=== PATIENT | male | born 1955 | race Hispanic/Latino ===

== ENCOUNTER → 2018-12-10 | Outpatient (CLI) | payer OTHER, SELFPAY ==
[~2018-12-10] MED LIST: OMEPRAZOLE20 M1 PO
--- NOTE | 2018-12-10 10:40 | Diagnostic Imaging Report ---
Abdominal ultrasound. History: Epigastric pain. Comparison: None available. Discussion: Transverse and longitudinal images of the abdomen were obtained demonstrating a liver of normal size but mildly increased echogenicity measuring 10.5 cm in length. There is no focal hepatic abnormality. The portal vein is patent with hepatopetal flow and is within normal limits measuring 7 mm in diameter. The biliary tree is within normal limits with the common bile duct measuring 1 mm in diameter. The gallbladder is contains minimal echogenic material layering posteriorly without evidence of shadowing stones, wall thickening, or pericholecystic fluid. The sonographic Ibarra's sign was negative. The kidneys are normal in size and echogenicity bilaterally without evidence of hydronephrosis, stones, or mass. The right kidney measures 10.5 cm and the left kidney measures 11.1 cm in length. Small parapelvic cysts are noted on the left. The spleen is normal in size and appearance measuring 9.2 cm in length. The pancreatic head and body are visualized and are normal in appearance. The abdominal aorta and IVC are within normal limits. There is no evidence of free fluid. IMPRESSION: 1. Mild fatty infiltration of the liver without focal hepatic abnormality. 2. Minimal gallbladder sludge. No evidence of cholelithiasis. 3. Left parapelvic renal cysts. Otherwise unremarkable abdominal ultrasound. Signed by: Ross Otoole on 12/10/2018 10:37 AM
== END ==
LOC: US 08:10
PROVIDERS: ATTEND Internal Medicine Gastroenterology
DX: R10.13 Epigastric pain (principal); E66.3 Overweight; Z71.3 Dietary counseling and surveillance
CPT/HCPCS: 76700

== ENCOUNTER → 2019-01-21 | Day surgery (SDC) | payer SELFPAY ==
[~2019-01-21] MED LIST changes: +FENTANYL CITRATE/PF 100MCG/2 ML INJ ONE; +MIDAZOLAM HCL 2 MG/2 ML VIAL ONE; +PROPOFOL IV EMULSION 10 MG/ML 50 ML VIAL ONE
--- OUTSIDE RECORDS SUMMARY | 2019-01-21 05:26 | XMS REPORT ---
Author Author [facility] Address Unknown Phone Unavailable Care Team Providers [facility] Director Name Role Phone Jimbo WILKINSON Unavailable Unavailable Problems This patient has no known problems. Allergies, Adverse Reactions, Alerts This patient has no known allergies or adverse reactions. Medications This patient has no known medications. Results Test Description Test Time Test Comments Text Results Atomic Results Result Comments US ABDOMEN COMPLETE 2018-12-10 10:34:00 [place] [address] Patient Name: ELIU KAPOOR MR #: [id number] : 1955 Age/Sex: 63/M Req #: [id number] Adm Physician: Ordered by: OVI WILKINSON MD Report #: [id number] Location: US Room/Bed: Procedure: [id number] US/US ABDOMEN COMPLETE Exam Date: 12/10/18 Exam Time: 915 REPORT STATUS: Signed Abdominal ultrasound. History: Epigastric pain. Comparison: None available. Discussion: Transverse and longitudinal images of the abdomen were obtained demonstrating a liver of normal size but mildly increased echogenicity measuring 10.5 cm in length. There is no focal hepatic abnormality. The portal vein is patent with hepatopetal flow and is within normal limits measuring 7 mm in diameter. The biliary tree is within normal limits with the common bile duct measuring 1 mm in diameter. The gallbladder is contains minimal echogenic material layering posteriorly without evidence of shadowing stones, wall thick ening, or pericholecystic fluid. The sonographic Ibarra's sign was negative. The kidneys are normal in size and echogenicity bilaterally without evidence of hydronephrosis, stones, or mass. The right kidney measures 10.5 cm and the left kidney measures 11.1 cm in length. Small parapelvic cysts are noted on the left. The spleen is normal in size and appearance measuring 9.2 cm in length. The pancreatic head and body are visualized and are normal in appearance. The abdominal aorta and IVC are within normal limits. There is no evidence of free fluid. IMPRESSION: 1. Mild fatty infiltration of the liver without focal hepatic abnormality. 2. Minimal gallbladder sludge. No evidence of cholelithiasis. 3. Left parapelvic renal cysts. Otherwise unremarkable abdominal ultrasound. Signed by: Vishnu Otoole on 12/10/2018 10:37 AM Dictated By: VISHNU OTOOLE MD [id number] Transcribed By: DAT on 12/10/18 1037 COPY TO: OVI WILKINSON MD
[2019-01-21 07:45] VITALS: BP 123/71
== END | disposition home or self-care (01) ==
LOC: OR 05:22
PROVIDERS: ATTEND Internal Medicine Gastroenterology
DX: K29.50 Unspecified chronic gastritis without bleeding (principal); K31.89 Other diseases of stomach and duodenum; K44.9 Diaphragmatic hernia without obstruction or gangrene; Z71.3 Dietary counseling and surveillance; E66.3 Overweight; Z01.810 Encounter for preprocedural cardiovascular examination; Z68.25 Body mass index [BMI] 25.0-25.9, adult
CPT/HCPCS: 43239; 93005; J2250; J2704; J3010